=== PATIENT | female | born 1935 | race Caucasian/White ===

== ENCOUNTER 2018-01-17 10:19 | Outpatient (CLI) | payer OTHER ==
[~2018-01-17 10:19] MED LIST: AMBIEN10 MG PO; CIPRO750 MG PO; DOCUSATE SODIU100 MG PO; JANUMET 50-1,1 UDTAB; NEURONTIN PO; NORVASC2.5 MG; PERCOCET 5/3251 TAB PO; SYNTHROID112 MCG; TOPROL XL50 MG
== END 2018-01-17 10:31 | disposition home or self-care (01) ==
LOC: LAB 10:19
DX: N30.00 Acute cystitis without hematuria (principal); R82.79 Other abnormal findings on microbiological examination of urine

== ENCOUNTER 2018-01-17 11:04 | Outpatient (CLI) | payer OTHER | END 2018-01-17 11:12 | disposition home or self-care (01) | LOC: TOM 11:04 | DX: N39.0 Urinary tract infection, site not specified (principal) ==

== ENCOUNTER → 2020-07-23 13:55 | Outpatient (CLI) | payer OTHER | END | disposition home or self-care (01) | LOC: LAB 13:55 | PROVIDERS: ATTEND Urology | DX: N30.00 Acute cystitis without hematuria (principal); B96.89 Other specified bacterial agents as the cause of diseases classified elsewhere ==

== ENCOUNTER 2020-08-22 09:45 | Outpatient (CLI) | payer OTHER | END 2020-08-22 10:26 | disposition home or self-care (01) | LOC: LAB 09:45 | PROVIDERS: ATTEND Urology | DX: N30.00 Acute cystitis without hematuria (principal) ==